=== PATIENT | female | born 1955 | race Caucasian/White ===

== ENCOUNTER 2018-10-18 06:24 | Inpatient (IN) ==
[~2018-10-18 06:24] MED LIST: MORPHINE SULFATE 15 MG TABLET.SA PO PRN; ROPIVACAINE HCL/PF 100 MG, EPINEPHrine 0.2 MG in NORMAL SALINE 100 ML IJ PRN; TRANEXAMIC ACID 1,000 MG in NORMAL SALINE 100 ML IV PRN; ceFAZolin SODIUM 1 GM VIAL IV PRN
[2018-10-18] MEDS: RINGER'S SOLUTION,LACTATED 1,000 ML IV PRN ×2 (07:07→08:50)
--- NOTE | 2018-10-18 07:33 | ANES ---
Anesthesia Pre Procedure Eval Vitals/Labs: Last Vital Signs Temp 36.6 C 10/18/18 06:40 Pulse 80 10/18/18 06:40 Resp 16 10/18/18 06:40 BP 118/71 10/18/18 06:40 Pulse Ox 97 10/18/18 06:40 HOME MEDICATIONS Cholecalciferol (Vitamin D3) [Vitamin D] 800 unit PO BID 03/12/14 [Last Taken Unknown] Multivitamin [Multivitamins] 1 ea PO DAILY 08/26/17 [Last Taken Unknown] abatacept 125 mg/mL subcutaneous syringe 125 mg SUB-Q QMONTH ml 03/14/18 [Last Taken Unknown] prednisone 20 mg tablet 20 mg PO DAILY PRN 04/04/18 [Last Taken Unknown] carisoprodol 350 mg tablet 350 mg PO HS PRN 10/05/18 [Last Taken Unknown] hydrocodone 10 mg-acetaminophen 325 mg tablet 1 tab PO Q6H PRN 10/06/18 [Last Taken Unknown] Amitriptyline HCl [Elavil] 50 mg PO HS PRN 10/17/18 [Last Taken Unknown] Aspirin [Aspirin Enteric Coated] 81 mg PO DAILY 10/17/18 [Last Taken Unknown] Clonazepam 2 mg PO QID PRN 10/17/18 [Last Taken Unknown] Allergies/Adverse Reactions: Allergies Allergy/AdvReac Type Severity Reaction Status Date / Time ketorolac tromethamine Allergy Severe Anaphylaxis Verified 10/18/18 06:50 [From Toradol] Sulfa (Sulfonamide Allergy Severe ANAPHYLACTI Verified 10/18/18 06:50 Antibiotics) C [Sulfa(Sulfonamide Antibiotics)] tramadol Allergy Severe Anaphylaxis Verified 10/18/18 06:50 gabapentin Allergy Mild Eyes Verified 10/18/18 06:50 burning nalbuphine [From Nubain] Allergy Mild Anxiety Verified 10/18/18 06:50 issues carbamazepine [From Tegretol] Allergy Vomiting Verified 10/18/18 06:50 methotrexate AdvReac Mild N/V, Verified 10/18/18 06:50 HEADACHE - Planned Procedure Planned Procedure: Left Knee Patella Resurfacing Medication List Reviewed:: Yes Allergies Verified: Yes Medical History (Last Reviewed 10/18/18 @ 07:32 by Sam Bonner CRNA) Urticaria (Resolved) She treats this with Benadryl. She also uses Benadryl spray on her scalp last time which seemed to help. Lupus (Chronic) Onset Date: Unknown Restless leg syndrome (Chronic) Onset Date: Unknown Insomnia (Chronic) Onset Date: Unknown Hypothyroidism (Chronic) Onset Date: Unknown Connective tissue disorder (Chronic) Onset Date: Unknown Arthritis (Chronic) Onset Date: Unknown Anxiety (Chronic) Onset Date: Unknown Anemia (Chronic) Onset Date: Unknown Knee pain, left Onset Date: Unknown Cataracts, bilateral Onset Date: Unknown Colonic polyp Onset Date: Unknown Tachycardia Onset Date: Unknown Surgical History (Last Reviewed 10/18/18 @ 07:32 by Sam Bonner CRNA) History of YAG laser capsulotomy of lens Onset Date: Unknown left and right eye S/P total knee arthroplasty Onset Date: Unknown LEFT H/O adenoidectomy Onset Date: Unknown H/O arthroscopic knee surgery Onset Date: Unknown right knee H/O colonoscopy Onset Date: Unknown H/O sigmoidoscopy Onset Date: Unknown H/O tubal ligation Onset Date: Unknown History of tonsillectomy Onset Date: Unknown Hx of cataract surgery Onset Date: Unknown bilateral S/P LOTUS (total abdominal hysterectomy) Onset Date: Unknown S/P epidural steroid injection Onset Date: Unknown lumbar and cervical Family History (Last Reviewed 10/18/18 @ 07:32 by Sam Bonner CRNA) Father Colon cancer CHF (congestive heart failure) Arthritis Cholelithiasis Mother Crohns disease Cancer Cholelithiasis Melanoma Grandmother CVA (cerebral vascular accident) (Maternal) - Family Anesthesia History Family History:: no untoward family reactions to anesthesia - Airway/Neck/Teeth Within Normal Limits:: Yes Teeth Condition: intact Neck Exam: full range of motion Mallampatti Score: 2 Thyromental (T-M) distance: > 6 cm Mandibulo Hyoid distance: > 3 cm - Respiratory Respiratory Physical: lungs clear Smoking Status: Never smoker Sleep Apnea currently treated: No Sleep Apnea by current assessment: No - Cardiovascular Tolerate Activity: Fair Heart Sounds: S1 & S2, Regular - Anesthesia Assessment and Plan ASA Class: PS, II Anesthesia Type Plan: Spinal - Lt adductor canal block for postop analgesia
[2018-10-18 09:24] LABS: Body Fluid WBC 27701 /uL (0-1000)
--- NOTE | 2018-10-18 09:45 | OR ---
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 Procedure: Left patellar resurfacing arthroplasty Surgeon: Bijan Matos M.D. Spring Fitter Helper: Aleksandr Mckinley PA-C (provided and essential set of skilled, educated hands that assisted with transfer, positioning, prepping, draping, manipulation, retraction, placement of jigs, injection, insertion of implants, irrigation, closure wounds, and dressings all of which could not be performed by the available surgical crew) Anesthesia: Spinal with regional block and local periarticular joint injection. Complications: None Specimens: Bone for disposal. Culture 2, aspirate 1 Estimated blood loss: Minimal. Tourniquet time: 58 Minutes at 300 millimeters of mercury. Retained implants: Depuy 32 millimeter round patella button. Indications: Mrs. Cannon is a 62-year-old female who underwent a knee arthroplasty by an outside physician who did not resurface her patella and developed ongoing anterior knee pain. This patient was followed in my clinic for period of time with significant complaints of left anterior knee pain consistent with arthritic changes. She had failed conservative measures including, but not limited to, activity modification, passage of time, medications, and other conservative measures. Patient wished to proceed with surgical treatment. The risks, benefits, and alternatives were discussed in clinic. The risks of , blood clots, bleeding, infection, nerve/tendon blood vessel/ injury, malposition of components, intraoperative fracture, postoperative limited range of motion, persistent pain, failure of components, and need for additional procedures. Patient wished to proceed consent was obtained after answering all questions. Procedure: After marking the correct extremity on the floor, the patient was taken to the operating room. A timeout was performed. IV antibiotics consisting of Ancef were administered prior to the procedure. A regional followed by spinal anesthetic was induced by anesthesia, per my request, on the operative table with all bony prominences well-padded. Jeffers catheter was placed, and a bump was placed under the operative side buttock. SCDs and BRITTANIE hose were utilized on the nonoperative leg. A well-padded tourniquet was applied to the operative thigh. The operative leg was then pre-scrubbed with alcohol, prepped, and draped in a standard sterile fashion. After exsanguinating the extremity with an Esmarch bandage, the tourniquet was inflated. After marking out the prior anterior knee incision, the skin was incised and dissected down to the joint retinaculum. The joint retinaculum was marked out as well as the horizontal axis of the patella, and a standard medial parapatellar arthrotomy was then made. There was retained running Ethibond suture which was removed. The most proximal aspect of the quadriceps tendon and the patella tendon insertion were protected from release. A partial synovectomy was performed as well as a resection of the infrapatellar fat pad. There was noted synovial fluid that was not grossly purulent. Culture and aspirate was obtained. Upon initial evaluation range of motion was approximately 0 degrees to 120 degrees of flexion. There were signs of advanced arthrosis of the patella. The implants appeared stable. There is not any excessive synovial inflammation or signs of implant failure. There was some gapping of the medial lateral joint spaces in mid flexion of approximately 3-4 mm. This was a cruciate retaining knee. The polyethylene appeared to be undamaged. The patella was then prepared. The initial thickness was 24 millimeters. This was reamed down to 14 millimeters parallel to the anterior surface of the patella. It was sized out to a size 32 medialized round patella button. This was then drilled and trialed. Without any medial restraint the patella tracked appropriately and did not sublux or dislocate. At this point, it was felt these were the appropriate sized implants, and the trial was removed. The standard periarticular joint injection consisting of ropivacaine, Toradol, and epinephrine were injected into the periarticular joint tissues. The bony surfaces were thoroughly irrigated with a pulsatile-suction saline irrigation device. The bony surfaces were then dried in preparation for placement of the implants. The cement was vacuum mixed per the systems spec's instructions. The cement was placed on the dry bony surfaces and posterior aspect of the implant. The implant was compressed into place, removing all extruded cement. At this point anesthesia administered tranexamic acid per protocol intravenously. Once the cement cured, all remaining extruded cement was removed. Final range of motion was approximately 0 to 120 degrees. The knee was again thoroughly irrigated with pulsatile saline lavage. The final polyethylene insert was then impacted into place ensuring no retained soft tissues. The remaining periarticular joint injection was injected. The knee was then placed over a triangle and the arthrotomy was closed with interrupted #1 Vicryl after thoroughly irrigating the joint. The deep and subcutaneous tissues were closed with interrupted 0 and 3-0 Vicryl respectively. Skin was closed with a running subcutaneous 3-0 Monocryl and Prineo Dermabond dressing. 4 x 4's, Sof-Rol, and a full leg Ramone wrap were applied. All sponge, needle, blade, and instrument counts were correct prior to closing the wounds. Postoperative condition: The patient was awoken and transferred to the postanesthesia care unit in stable condition. Plan is to be admitted to the inpatient medical/surgical floor postoperatively for 24 hours of IV antibiotics, physical therapy, occupational therapy, and medical comanagement. Patient will be weightbearing as tolerated with range of motion as tolerated. DVT prophylaxis will be with SCDs, BRITTANIE hose, and pharmacological anticoagulation. Anticipated hospital stay is approximately 1-3 days.
[2018-10-18] MEDS ORDERED: MAGNESIUM HYDROXIDE 30 ML UDC PO PRN (09:46)
[2018-10-18] MEDS ORDERED: ACETAMINOPHEN 500 MG TABLET PO PRN (09:46)
[2018-10-18] MEDS ORDERED: diphenhydrAMINE HCL 50 MG/ML VIAL IV PRN (09:46)
[2018-10-18] MEDS ORDERED: ONDANSETRON HCL/PF 2 MG/ML VIAL IV PRN (09:46)
[2018-10-18] MEDS ORDERED: ZOLPIDEM TARTRATE 5 MG TABLET PO PRN (09:46)
[2018-10-18] MEDS ORDERED: MAG HYDROX/ALUMINUM HYD/SIMETH 30 ML UDC PO PRN (09:46)
[2018-10-18] MEDS ORDERED: CARISOPRODOL 350 MG TABLET PO PRN (09:48)
[2018-10-18] MEDS ORDERED: predniSONE 20 MG TABLET PO PRN (09:48)
[2018-10-18] MEDS ORDERED: clonazePAM 1 MG TABLET PO PRN (09:48)
[2018-10-18] MEDS ORDERED: AMITRIPTYLINE HCL 25 MG TABLET PO PRN (09:48)
[2018-10-18 09:56] LABS: Body Fluid Appearance TURBID (CLEAR); Body Fluid Color AMBER (COLORLESS)
[2018-10-18] MEDS: DEXTROSE 5%-LACTATED RINGERS 1,000 ML IV PRN ×2 (11:55→21:47)
[2018-10-18] MEDS: ceFAZolin SODIUM 1 GM in DEXTROSE 5 % IN WATER 100 ML IV SCH ×6 (11:57→23:37)
--- NOTE | 2018-10-18 12:40 | ANES ---
Post Anesthesia Assessment - Vital Signs Vitals: Last Vital Signs Temp 37.7 C 10/18/18 10:15 Pulse 80 10/18/18 10:15 Resp 13 10/18/18 10:15 BP 124/56 10/18/18 10:15 Pulse Ox 99 10/18/18 10:15 Airway Patency: Normal - Mental Status Level Of Consciousness: Awake - Pain Level Pain Score: 0 - N/V Assessment Nausea/Vomiting Presence: None Dehydration:: No
--- NOTE | 2018-10-18 12:40 | ANES ---
Post Anesthesia Discharge - Transfer of Care Transfer of Care handoff given to nurse: Yes - Discharge from PACU Discharge from PACU when meets criteria: Yes
--- NOTE | 2018-10-18 12:45 | ANES ---
Anesthesia Procedure Note Procedure Note: ANESTHESIA PROCEDURE NOTE Date of procedure: 10/18/2018. Time of procedure: 07 50. Performed by: Eleazar Bonner CRNA Curing Press Maintainer: Zeynep Renner RN . Preprocedure diagnosis: Chronic patellofemoral pain. Desire for postoperative analgesia.. Post procedure diagnosis: Same. Procedure: Ultrasound-guided left adductor canal block Indications: Postoperative analgesia. Findings: Patient brought to operating room #4 and placed in supine position. Patient was sedated. ChloraPrep skin prep was used on patient's left thigh. Ultrasound was utilized to identify adductor canal. 4 inch 20-gauge regional block needle was advanced under ultrasound guidance until tip of needle was positioned in adductor canal. 20 mL of 0.25% Marcaine with epinephrine 1 200,000 was injected with adequate spread of local anesthesia noted. EBL: Minimal. Fluids: N/A. Specimen: N/A. Post procedure condition: The patient tolerated the procedure well. No complications were noted. Thank you for this consultation Eleazar Bonner CRNA
[2018-10-18] MEDS: oxyCODONE HCL/ACETAMINOPHEN 1 TAB TABLET PO PRN ×3 (13:37→21:55)
[2018-10-18] MEDS: MORPHINE SULFATE 2 MG/ML DISP.SYRIN IV PRN ×2 (18:47→23:45)
[2018-10-18] MEDS ORDERED: SENNOSIDES/DOCUSATE SODIUM 1 TAB TABLET PO SCH (21:00)
[2018-10-18] MEDS: ASPIRIN 325 MG TABLET.DR PO SCH (21:49)
[2018-10-18] MEDS: CHOLECALCIFEROL 400 UNIT TABLET PO SCH (21:50)
[2018-10-19] MEDS: oxyCODONE HCL/ACETAMINOPHEN 1 TAB TABLET PO PRN ×3 (02:01→10:36)
--- NOTE | 2018-10-19 08:03 | DS ---
(1) Total knee replacement status Problem: Chronic Qualifiers: Laterality: left Qualified Code(s): Z96.652 - Presence of left artificial knee joint (2) Patellar derangement Problem: Acute Qualifiers: Laterality: left Qualified Code(s): M22.3X2 - Other derangements of patella, left knee (3) Disorder of left patella Problem: Acute (4) Anxiety Problem: Chronic (5) Graves disease Problem: Chronic (6) Hypothyroidism Problem: Chronic (7) Insomnia Problem: Chronic Qualifiers: (8) Lupus Problem: Chronic Qualifiers: (9) Restless leg syndrome Problem: Chronic Description of Stay: Mrs. Cannon was admitted to the floor after undergoing resurfacing of left patella status post partial left knee arthroplasty. Tolerated this well. Was admitted to the floor postoperatively for 24 hours of IV antibiotics, pain control, medical comanagement, and occupational and physical therapy. PT were consulted to assist with activities of daily living and ambulation. Was made weightbearing as tolerated with range of motion as tolerated. Pain was i nitially controlled with IV regimen. This was transitioned to oral once tolerating a by mouth intake. Was resumed on home diet and medications. Had a Jeffers catheter inserted and the operating room which was discontinued on postoperative day 1. Aspirin SCD and BRITTANIE hose were utilized for DVT prophylaxis. Vital signs remained stable to the hospital course. Physical examination throughout the hospital course showed an extremity that had sensation that was intact to light touch, palpable pulses, a benign wound, motor intact to the toes, ankle, and knee. Knee range of motion was approximately 0 degrees to 70 degrees. Once an oral pain regimen was tolerated and physical therapy goals were met, it was felt that they were stable for discharge to home. Instructions: Continue with weightbearing as tolerated and range of motion as tolerated. It is okay to shower and get the wound wet as long as there is no drainage from the wound. Do not bathe or soak the wound. If there is any drainage from the wound keep the wound clean and dry and cover with dry gauze and tape. Change every 2- 3 days as needed if there is any drainage. Cover wound while showering if there is any drainage. Continue with physical therapy. Resume home diet. Report any fever over 101.5 Fahrenheit, uncontrolled pain, increased drainage, foul odor of drainage, new or increased calf pain or shortness of breath, or any other significant complaints. A 325mg twice a day aspirin will be taken for 6 weeks. Continue with BRITTANIE hose on the operative extremity until instructed otherwise. Follow up in approximately 14-21 days. Procedures Performed: see notes below List Procedures: Patella resurfacing status post partial knee replacement Results and Findings: Lab Pending Results 10/18/18 08:45: Fluid Color Korina, Fluid Appearance Turbid, Fluid WBC 25699 H, Fluid RBC Greater than 1000.0 H, Fluid Neutrophils 88, Fluid Lymphocytes 7, Fluid Monocytes 5 Disposition: Home self-care Condition: Good Discharge Activity: Activity as tolerated, Weight bearing Discharge Diet: General/regular food Referrals: Guero Valenzuela DO [Primary Care Provider] - Additional Patient Instructions (free text): Physical Therapy at [facility] outpatient rehab department on Tuesday at 9:15am. Follow up Dr Matos Orthopedic appointment on TuesdayNovember 07 at 10:30am. Prescriptions (Any new or edited meds): Aspirin [Aspirin Enteric Coated] 325 mg PO BID #90 tablet. Levofloxacin [Levaquin] 750 mg PO DAILY #7 tab oxyCODONE HCL/ACETAMINOPHEN [Percocet 5 MG/325 MG] 2 tab PO Q4H PRN #60 tab PRN Reason: Moderate Pain (Pain Scale 4-6) Sennosides/Docusate Sodium [Senokot-S] 2 tab PO HS #60 tab Complete Home Medications List: Complete Home Medication List: Cholecalciferol (Vitamin D3) [Vitamin D3] 800 unit PO BID 03/12/14 Multivitamin [Multivitamins] 1 ea PO DAILY 08/26/17 abatacept 125 mg/mL subcutaneous syringe 125 mg SUB-Q QMONTH ml 03/14/18 prednisone 20 mg tablet 20 mg PO DAILY PRN 04/04/18 carisoprodol 350 mg tablet 350 mg PO HS PRN 10/05/18 Amitriptyline HCl [Elavil] 50 mg PO HS PRN 10/17/18 Clonazepam 2 mg PO QID PRN 10/17/18 Aspirin [Aspirin Enteric Coated] 325 mg PO BID #90 tablet. 10/19/18 Levofloxacin [Levaquin] 750 mg PO DAILY #7 tab 10/19/18 Sennosides/Docusate Sodium [Senokot-S] 2 tab PO HS #60 tab 10/19/18 oxyCODONE HCL/ACETAMINOPHEN [Percocet 5 MG/325 MG] 2 tab PO Q4H PRN #60 tab 10/19/18 Amb Orders for Discharge: PT Evaluation and Treatment* Facility: [facility], Location: Rehabilitation Services
[2018-10-19] MEDS: ASPIRIN 325 MG TABLET.DR PO SCH (10:00)
[2018-10-19] MEDS: CHOLECALCIFEROL 400 UNIT TABLET PO SCH (10:00)
[2018-10-19 11:22] VITALS: BP 148/84
== END 2018-10-19 11:01 | disposition home or self-care (01) | DRG 516 ==
LOC: MS 06:24
PROVIDERS: ADMIT Orthopaedic Surgery; ATTEND Orthopaedic Surgery
DX: F51.04 Psychophysiologic insomnia; G25.81 Restless legs syndrome; M22.40 Chondromalacia patellae, unspecified knee; E03.9 Hypothyroidism, unspecified; M22.3X2 Other derangements of patella, left knee; M32.9 Systemic lupus erythematosus, unspecified; T84.84XA Pain due to internal orthopedic prosthetic devices, implants and grafts, initial encounter; Z96.652 Presence of left artificial knee joint
CPT/HCPCS: 73560; 87070; 87075; 87205; 89051; 97110; 97116; 97161; J2405